=== PATIENT | female | born 1965 | race Caucasian/White ===

== ENCOUNTER 2019-11-26 08:12 | Outpatient (CLI) | payer BC, SELFPAY ==
--- NOTE | ~2019-11-26 | MM_ITS ---
EXAMINATION: MM screening [facility] BI w candice HISTORY: Screening mammogram TECHNIQUE: Craniocaudal and mediolateral oblique 3-D tomosynthesis images were obtained and synthetic 2-D images were generated. CAD analysis was submitted and interpreted. COMPARISON: 09/01/2018, 08/23/2017, 04/01/2016 bilateral digital screening mammogram examinations BREAST PARENCHYMAL COMPOSITION: The breasts are heterogeneously dense, which may obscure small masses . FINDINGS: There is a biopsy marker on the right, in the upper outer quadrant; history of prior benign right breast biopsy. Scattered bilateral benign appearing microcalcifications. There is no evidence of suspicious mass, ca lcification, or architectural distortion to suggest malignancy in either breast. There has been no lemus spicious interval change. IMPRESSION: 1. No mammographic evidence of malignancy. 2. Recommend routine screening mammography in one year. BI-RADS Category 2: Benign finding(s). Reviewed, dictated and finalized at location A.
== END 2019-11-26 08:13 | disposition home or self-care (01) ==
PROVIDERS: Visit Provider Student in an Organized Health Care Education/Training Program
DX: Z12.31 Encounter for screening mammogram for malignant neoplasm of breast (principal)
CPT/HCPCS: 77063; 77067

== ENCOUNTER 2021-01-06 07:47 | Outpatient (CLI) | payer BC, SELFPAY ==
--- NOTE | ~2021-01-06 | MM_ITS ---
EXAMINATION: MM screening [facility] BI w candice HISTORY: Screening mammogram TECHNIQUE: Craniocaudal and mediolateral oblique 3-D tomosynthesis images were obtained and synthetic 2-D images were generated. CAD analysis was submitted and interpreted. COMPARISON: 11/26/2019, 09/01/2018, 08/23/2017 bilateral digital screening mammogram examinations BREAST PARENCHYMAL COMPOSITION: The breasts are heterogeneously dense, which may obscure small masses . FINDINGS: There is a biopsy marker on the right; history of prior benign right breast biopsy. Scatter ed punctate benign-appearing microcalcifications are again noted in the breasts. Stable right axillar y tail circumscribed lymph node. There is no evidence of suspicious mass, calcification, or architectural manager ural distortion to suggest malignancy in either breast. There has been no suspicious interval change. IMPRESSION: 1. Benign findings. No mammographic evidence of malignancy. 2. Recommend routine screening mammography in one year. BI-RADS Category 2: Benign finding(s). Reviewed, dictated and finalized at location A.
== END 2021-01-06 07:48 | disposition home or self-care (01) ==
PROVIDERS: Visit Provider Student in an Organized Health Care Education/Training Program
DX: Z12.31 Encounter for screening mammogram for malignant neoplasm of breast (principal)
CPT/HCPCS: 77063; 77067

== ENCOUNTER 2022-07-12 07:47 | Outpatient (CLI) | payer BC, SELFPAY ==
--- NOTE | ~2022-07-12 | MM_ITS ---
EXAMINATION: MM screening [facility] BI w candice HISTORY: Screening mammogram TECHNIQUE: Craniocaudal and mediolateral oblique 3-D tomosynthesis images were obtained and synthetic 2-D images were generated. CAD analysis was submitted and interpreted. COMPARISON: 01/06/2021, 11/26/2019 BREAST PARENCHYMAL COMPOSITION: The breasts are heterogeneously dense, which may obscure small masses . FINDINGS: Scattered benign-appearing calcifications are present. No suspicious mass, calcification, o r architectural distortion are identified in either breast to suggest malignancy. There has been no s uspicious interval change. IMPRESSION: 1. No mammographic evidence of malignancy. 2. Recommend routine screening mammography in one year. BI-RADS Category 2: Benign finding(s). Reviewed, dictated and finalized at location A.
== END 2022-07-12 07:48 | disposition home or self-care (01) ==
LOC: ANHIMG 07:48
PROVIDERS: PCP Family Medicine Sports Medicine; Visit Provider Obstetrics & Gynecology
DX: Z12.31 Encounter for screening mammogram for malignant neoplasm of breast (principal)
CPT/HCPCS: 77063; 77067

== ENCOUNTER 2023-03-13 10:28 | Emergency (ER) | payer BC, SELFPAY ==
[2023-03-13 10:52] VITALS: BP 129/76; PULSE 74; RESP 20; TEMP 37; O2SAT 98
--- NOTE | 2023-03-13 11:03 | ED.URI ---
HPI - URI/Sore Throat General Chief Complaint: Upper Respiratory Infection Stated Complaint: SORE THROAT/[place] Time Seen by Provider: 03/13/23 11:03 Source: patient Mode of arrival: ambulatory Limitations: no limitations History of Present Illness HPI Narrative: 57-year-old female presents with complaint of sore throat for 2 days. Reports intermittent runny nose. Afebrile. No other complaints today. States throat feels ?swollen ?. All systems reviewed and negative except as noted above. Related Data Home Medications Medication Instructions Recorded Confirmed loratadine 10 mg tablet (Claritin) 10 mg PO DAILY 10/30/19 03/13/23 simvastatin 20 mg tablet 20 mg PO DAILY 10/30/19 03/13/23 omega-3 fatty acids 1,000 mg 1,000 mg PO BID 10/30/20 03/13/23 capsule (Fish Oil Concentrate) bupropion HCl 150 mg 24 hr tablet, 150 mg PO QAM 06/11/22 03/13/23 extended release Allergies Allergy/AdvReac Type Severity Reaction Status Date / Time [place] And Derivatives Allergy Unknown Unknown Verified 03/13/23 10:58 Penicillins Allergy Unknown Unknown Verified 03/13/23 10:58 Review of Systems Review of Systems: CONSTITUTIONAL: Denies fever, chills, or sweats. EYES: Denies visual changes, redness, or discharge. ENT: Denies rhinorrhea, congestion reports sore throat. Denies otalgia. CARDIOVASCULAR: Denies chest pain, palpitations, or edema. RESPIRATORY: Denies cough or dyspnea. GASTROINTESTINAL: Denies abdominal pain, nausea, vomiting, or diarrhea. GENITOURINARY: Denies dysuria or hematuria. SKIN: Denies rash or itching. MUSCULOSKELETAL: Denies back pain, joint pain, or myalgia. NEUROLOGIC: Denies headache, numbness, or weakness. PSYCHIATRIC: Denies anxiety or depression. All other systems reviewed are negative, except as documented in HPI. [facility] Past Medical History Medical History (Updated 03/13/23 @ 11:10 by Shabnam Garces NP) Anxiety and depression High cholesterol Surgical History Surgical History Albers teeth removed Family History Family History Father Diabetes mellitus Sibling Diabetes mellitus Mother Family history of malignant neoplasm Social History Social History (Updated 06/11/22 @ 10:38 by Francesca Garcia MA) Smoking status: Never smoker Second hand tobacco smoke exposure: No Alcohol intake: current Substance use: never Lack of Transportation: No Lack of Food: Never True Current Housing: I Have Housing Concerned About Future Housing: No Difficulty Paying Gas/Electric Bills: No Currently Unemployed: No Education: Trade/Vocational Certificate Living arrangements: with family Occupation/Education: occupation Gender identity (if verbalized by the patient): Female Sexual Orientation (if Verbalized by the Patient): Straight or Heterosexual Spiritual care concerns: No Comments At time of signature, agree with nursing past medical, surgical, social and family history. There is no relevant family history pertinent to the presenting complaint. Exam Narrative: GENERAL: This is a well-nourished, well-developed patient, in no apparent distress. HEAD: normocephalic, atraumatic. EYES: PERRL. Sclera clear/white. Vision is grossly intact. EARS: External ears normal, auditory canals clear and without drainage, TMs normal without perforation. Hearing grossly intact. NOSE: External nose normal with no obvious nasal discharge, nares without redness, no rhinorrhea. THROAT: Mucous membranes moist, mild erythema. No swelling or exudates. NECK: Neck supple, non-tender without lymphadenopathy, masses or thyromegaly. CARDIOVASCULAR: Regular rate and rhythm without murmurs, gallops, or rubs. RESPIRATORY: Clear to auscultation. Breath sounds equal bilaterally. No wheezes, rales, or rhonchi. SKIN: warm, Dry, intact with no suspicious lesions or rash,
== END 2023-03-13 11:18 | disposition home or self-care (01) ==
PROVIDERS: Emergency Provider Nurse Practitioner Family
DX: J02.8 Acute pharyngitis due to other specified organisms (principal); F41.8 Other specified anxiety disorders
CPT/HCPCS: 87081; 87880; 99213; G0463

== ENCOUNTER 2023-10-05 09:08 | Outpatient (CLI) | payer BC, SELFPAY ==
--- NOTE | ~2023-10-05 | MM_ITS ---
EXAMINATION: MM screening [facility] BI w candice HISTORY: Screening TECHNIQUE: Craniocaudal and mediolateral oblique 3-D tomosynthesis images were obtained and synthetic 2-D images were generated. CAD analysis was submitted and interpreted. COMPARISON: Comparison to multiple prior studies sequentially, with oldest reviewed study dated 04/01. BREAST PARENCHYMAL COMPOSITION: Dense: The breasts are heterogeneously dense, which may obscure small masses FINDINGS: There is no evidence of suspicious mass, calcification, or architectural distortion to sugg est malignancy in either breast. There has been no suspicious interval change. IMPRESSION: 1. No mammographic evidence of malignancy. 2. Recommend routine screening mammography in one year. BI-RADS Category 1: Negative Reviewed, dictated and finalized at location B.
== END 2023-10-05 09:09 | disposition home or self-care (01) ==
LOC: ANHIMG 09:10
PROVIDERS: Visit Provider Obstetrics & Gynecology
DX: Z12.31 Encounter for screening mammogram for malignant neoplasm of breast (principal)
CPT/HCPCS: 77063; 77067

== ENCOUNTER 2024-10-31 15:25 | Outpatient (CLI) | payer BC, SELFPAY ==
--- NOTE | ~2024-10-31 | MM_ITS ---
EXAMINATION: MM screening [facility] BI w candice HISTORY: Screening mammogram TECHNIQUE: Craniocaudal and mediolateral oblique 3-D tomosynthesis images were obtained and synthetic 2-D images were generated. CAD analysis was submitted and interpreted. COMPARISON: 10/05/2023, 07/12/2022, 01/06/2021 BREAST PARENCHYMAL COMPOSITION:Dense: The breasts are heterogeneously dense, which may obscure small masses. FINDINGS: No suspicious mass, calcification, or architectural distortion are identified in either breast to suggest malignancy. There has been no suspicious interval change. IMPRESSION: No mammographic evidence of malignancy. Recommend routine screening mammography in one year. BI-RADS Category 1: Negative Reviewed, dictated and finalized at location .
--- OUTSIDE RECORDS SUMMARY | 2024-10-31 15:59 | XMS_ITS | Clinical Summary ---
Author Organization [facility] Address [address] [place] [address] Phone Care Team Providers Care Clinical Appeals Reviewer Name Role Phone Provider, Unknown Primary Care Provider Unavaila ble Allergies Active Allergy Reactions Criticality Noted Date Comments [place] Hives 02/05/2020 Penicillins Hives 02/05/2020 Medications simvastatin (ZOCOR) 40 MG Tablet 20 mg. 11/23/2019 Active escitalopram (LEXAPRO) 10 MG Tablet 12/13/2019 Active Loratadine (CLARITIN PO) Take by mouth. 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 Gender Identity Not on file Sexual Orientation Not on file Last Filed Vital Signs Vital Sign Reading Time Taken Comments Blood Pressure 112/60 02/05/2020 10:06 AM BOTTLE HOUSE CLEANERS SUPERVISOR Pulse 61 02/05/2020 10:06 AM BOTTLE HOUSE CLEANERS SUPERVISOR Temperature 36.6 C (97.9 F) 02/05/2020 10:06 AM BOTTLE HOUSE CLEANERS SUPERVISOR Respiratory Rate 16 02/05/2020 10:06 AM BOTTLE HOUSE CLEANERS SUPERVISOR Oxygen Saturation 98% 02/05/2020 10:06 AM BOTTLE HOUSE CLEANERS SUPERVISOR Inhaled Oxygen Concentration - - Weight 56.7 kg (125 lb) 02/05/2020 10:06 AM BOTTLE HOUSE CLEANERS SUPERVISOR Height - - Body Mass Index - - Plan of Treatment Health Maintenance Due Date Last Done Comments Hepatitis C Virus (HCV) Screening 1966 Hepatitis B Immunization (1 of 3 - 19+ 3-dose series) 1985 Pap Smear 1987 Cervical Cancer Screening (CCS) 1996 HPV/Cotest 1996 Cologuard 2011 Colonoscopy 2011 Colorectal Cancer Screening 2011 Immunochemical Fecal Occult Blood 2011 Pneumococcal Immunization (5 0+ years) (1 of 1 - PCV) 2016 Zoster Immunization (1 of 2) 2016 SARS-COV-2 Immunization (3 - 2023- season) 2023 11/20/2020, 10/30/2020 Influenza Immunization (#1) 2024 12/21/2018 Respiratory Syncytial Virus (RSV) Immunization (Adult) (1 - 1-dose 75+ series) 2041 DTaP/Tdap/Td Immunization Discontinued 08/25/2018 TdaP Immunization Completed 08/25/2018 Human Papillomavirus (HPV) Immunization Aged Out No longer eligible based on patient's age to complete this topic Meningococcal Immunization (ACWY) Aged Out No longer eligible based on patient's age to complete this topic Rotavirus Immunization Aged Out No lo nger eligible based on patient's age to complete this topic Care Teams Clinical Appeals Reviewer Relationship Specialty Start Date End Date Provider, Unknown UNKNOWN PCP - General 02/05/20
== END 2024-10-31 15:26 | disposition home or self-care (01) ==
LOC: ANHFOHIMG 15:37
PROVIDERS: Visit Provider Nurse Practitioner Obstetrics & Gynecology
DX: Z12.31 Encounter for screening mammogram for malignant neoplasm of breast (principal)
CPT/HCPCS: 77063; 77067

== ENCOUNTER 2024-11-01 12:23 | Emergency (ER) | payer BC, SELFPAY ==
--- NOTE | ~2024-11-01 | XR_ITS ---
EXAMINATION: XR chest 2V 11/01/2024 13:17 INDICATION: Chest pain TECHNIQUE:Frontal and lateral images of the chest were obtained. COMPARISON: None FINDINGS: The lungs are clear. The cardiomediastinal silhouette is within normal limits. There are no pleural effusions. There is no pneumothorax suspected. IMPRESSION: 1: NO ACUTE CARDIOPULMONARY DISEASE. Reviewed, dictated and finalized at location A.
[2024-11-01 12:25] VITALS: BP 145/80; PULSE 66; RESP 16; TEMP 36.2; O2SAT 100
--- OUTSIDE RECORDS SUMMARY | 2024-11-01 12:25 | XMS_ITS | Clinical Summary ---
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 Gender Identity Not on file Sexual Orientation Not on file Last Filed Vital Signs Vital Sign Reading Time Taken Comments Blood Pressure 112/60 02/05/2020 10:06 AM DIETETICS PROFESSOR Pulse 61 02/05/2020 10:06 AM DIETETICS PROFESSOR Temperature 36.6 C (97.9 F) 02/05/2020 10:06 AM DIETETICS PROFESSOR Respiratory Rate 16 02/05/2020 10:06 AM DIETETICS PROFESSOR Oxygen Saturation 98% 02/05/2020 10:06 AM DIETETICS PROFESSOR Inhaled Oxygen Concentration - - Weight 56.7 kg (125 lb) 02/05/2020 10:06 AM DIETETICS PROFESSOR Height - - Body Mass Index - [...] age to complete this topic Care Teams Global Security Architect Relationship Specialty Start Date End Date Provider, Unknown UNKNOWN PCP - General 02/05/20
--- NOTE | 2024-11-01 12:26 | ECG_ITS ---
Test Date: 2024-11-01 12:30:45 Measurements Intervals [facility] Rate: 66 P: 67 MN: 164 QRS: -56 QRSD: 96 T: 7 QT: 405 QTc: 426 Interpretive Statements SINUS RHYTHM WITH SINUS ARRHYTHMIA INCOMPLETE RIGHT BUNDLE BRANCH BLOCK LEFT ANTERIOR FASCICULAR BLOCK CONSIDER ANTERIOR INFARCT, AGE INDETERMINATE ABNORMAL ECG No previous ECG available for comparison Electronically Signed On 11-01-2024 12:57:30 CDT by Tano Ferguson D.O.
[2024-11-01 12:49] LABS: Hematocrit 38.3 % (37.0-47.0); Hemoglobin 12.4 g/dL (12.0-15.0); Immature Granulocyte Percent A 0.4 % (0-0.5); Lymphocytes Absolute Auto 2.15 K/mm3 (0.9-3.2); Mean Corpuscular HGB Conc 32.4 g/dl (32-36); Mean Corpuscular Hemoglobin 29.9 pg (26-34); Mean Corpuscular Volume 92.3 fl (80-100); Nucleated Red Blood Cells Absolute Auto 0.000 K/mm3 (0.0-0.012); Nucleated Red Blood Cells Perc 0.0 % (0.0-0.2); Platelet Count Result 270 k/mm3 (150-375); Red Blood Count 4.15 M/mm3 (4.2-5.4); White Blood Count 8.2 K/mm3 (4.5-10.0)
[2024-11-01 12:57] LABS: Alanine Aminotransferase 86 U/L (6-35); Albumin Level 4.6 g/dL (3.5-5.1); Alkaline Phosphatase 104 U/L (38-126); Anion Gap 7 mmol/L (4-12); Aspartate Amino Transferase 66 U/L (14-36); Bilirubin,Total 0.6 mg/dL (0.2-1.3); Blood Urea Nitrogen 16 mg/dL (7-17); Calcium 9.8 mg/dL (8.4-10.2); Carbon Dioxide 30 mmol/L (22-30); Chloride 102 mmol/L (98-107); Estimated CRCL calculation 50 ml/min; Estimated Glomerular Filt Rate > 60; Glucose 91 mg/dL (65-110); Lipase 57 U/L (23-300); Potassium 3.8 mmol/L (3.4-5.0); Sodium 139 mmol/L (137-145); Total Protein 8.1 g/dL (6.3-8.2)
[2024-11-01 13:08] LABS: Troponin I < 0.012 ng/mL (0.000-0.034)
[2024-11-01 13:12] LABS: INR 1.1; Prothrombin Time 13.8 Seconds (11.1-14.7)
[2024-11-01 13:13] LABS: Partial Thromboplastin Time 27.6 Seconds (22.3-36.8)
--- NOTE | 2024-11-01 13:31 | ED.CHESTPAIN ---
HPI - Chest Pain General Chief Complaint: Chest Pain Stated Complaint: chest pain, SOB Time Seen by Provider: 11/01/24 12:29 History of Present Illness HPI narrative: This is a 59-year-old female with history of hyperlipidemia presents to the ED for chest pain. Patient states that yesterday morning about 3:00 a.m. she was woken up with left-sided chest pain that radiated to her left back. Pain is worse with deep inspirations. She does not recall any change in his exercise regimen or heavy lifting. No prior cardiac history. Denies any recent illnesses, fevers, chills. Denies shortness of breath. Related Data Home Medications ?Medication ?Instructions ?Recorded ?Confirmed ?Last Taken ?Type loratadine 10 mg tablet (Claritin) 10 mg PO DAILY 10/30/19 08/10/24 Unknown History simvastatin 20 mg tablet 20 mg PO DAILY 10/30/19 08/10/24 Unknown History bupropion HCl 150 mg 24 hr tablet, 150 mg PO QAM 06/11/22 08/10/24 Unknown History extended release Allergies Allergy/AdvReac Type Severity Reaction Status Date / Time [place] And Derivatives Allergy Unknown Unknown Verified 08/10/24 09:27 Penicillins Allergy Unknown Unknown Verified 08/10/24 09:27 Review of Systems Review of Systems: Gen.: Denies fevers or chills Eyes: Denies eye pain or visual change ENT: Denies congestion Respiratory: Denies shortness of breath or cough CV: As per HPI GI: Denies abdominal pain nausea, emesis or diarrhea denies burning, urgency, frequency or hematuria Musculoskeletal: Denies back pain or muscle pain Neuro: Denies numbness, tingling, weakness or focal weakness Skin: Denies rash Except as documented, all other systems reviewed and negative [facility] Past Medical History Medical History (Updated 11/01/24 @ 14:03 by Jose E Alvarez MD) Anxiety and depression High cholesterol Surgical History Surgical History Helm teeth removed Family History Family History Father Diabetes mellitus Sibling Diabetes mellitus Mother Family history of malignant neoplasm Social History Social History Smoking status: Never smoker Second hand tobacco smoke exposure: No Alcohol intake: current Substance use: never Lack of Transportation: No Lack of Food: Never True Current Housing: I Have Housing Concerned About Future Housing: No Difficulty Paying Gas/Electric Bills: No Currently Unemployed: No Education: Trade/Vocational Certificate Living arrangements: with family Occupation/Education: occupation Gender identity (if verbalized by the patient): Female Sexual Orientation (if Verbalized by the Patient): Straight or Heterosexual Spiritual care concerns: No Exam Narrative: APPEARANCE: No acute distress, nontoxic, resting in bed EYES: EOMI HEENT: Normocephalic, atraumatic, OMM RESPIRATORY: No respiratory distress Clear to auscultation bilaterally with no rhonchi wheezing or rales. CARDIOVASCULAR: Regular rate and rhythm without murmurs rubs or gallops. ABDOMINAL: Soft, nontender, nondistended, no rebound or guarding MUSCULOSKELETAl: Moves all extremities. No clubbing, cyanosis or edema. TTP to the paraspinal left thoracic musculature. NEURO: Awake and alert. Following commands, speech normal, no focal deficits SKIN:: Warm, dry. No rashes lesions or abrasions PSYCHIATRIC: Normal affect/mood, Course Vital Signs Vital signs: Vital Signs Temperature 97.2 F L 11/01/24 12:25 Pulse Rate 66 11/01/24 12:25 Respiratory Rate 16 11/01/24 12:25 Blood Pressure 145/80 H 11/01/24 12:25 Pulse Oximetry 100 11/01/24 12:25 Oxygen Delivery Room Air 11/01/24 12:25 Temperature 97.2 F L 11/01/24 12:25 Pulse Rate 65 11/01/24 13:57 Respiratory Rate 13 11/01/24 13:57 Blood Pressure 135/73 11/01/24 13:57 Pulse Oximetry 97 11/01/24 13:57 Oxygen Delivery Room Air 11/01/24 12:35 MDM - Chest Pain MDM Narrative Medical decision making narrative: 59-year-old female who presented to the ED for chest pain onset yesterday morning. initial vital signs were stable. Patient's EKGs and labs are without significant high risk changes. Cardiac risk factors reviewed. Patient is felt likely low risk for ACS and reasonable for further risk stratification testing as an outpatient. Pain was not sudden or maximal in onset without tearing or ripping quality. No other signs of symptoms suggest aortic dissection. No pneumonia seen on evaluation today. Patient is felt to be a reasonable candidate for continued evaluation as an outpatient. patient was given Toradol letter with significant pain. Suspect she does have pleurisy. She was advised PCP further evaluation. Patient was agreeable this plan. Given strict return precautions. Differential Diagnosis Differential diagnosis: Likely atypical chest pain, costochondritis and chest pain Lab Data Attestation: I reviewed the patient's lab results. 11/01/24 12:39 11/01/24 12:39 Labs: Lab Results 11/01/24 Range/Units 12:39 WBC 8.2 (4.5-10.0) K/mm3 RBC 4.15 L (4.2-5.4) M/mm3 Hgb 12.4 (12.0-15.0) g/dL Hct 38.3 (37.0-47.0) % MCV 92.3 (80-100) fl MCH 29.9 (26-34) pg MCHC 32.4 (32-36) g/dl RDW 12.8 (11.5-14.5) % Plt Count 270 (150-375) k/mm3 MPV 9.8 (7.4-10.4) fl Immature Gran % (Auto) 0.4 (0-0.5) % Neut % (Auto) 61.1 (45.5-73.1) % Lymph % (Auto) 26.2 (18.3-44.2) % [place] % (Auto) 10.1 H (2.6-8.5) % Eos % (Auto) 1.7 (0-4.4) % Baso % (Auto) 0.5 (0.2-1.2) % Lymph # (Auto) 2.15 (0.9-3.2) K/mm3 [place] # (Auto) 0.8 H (0.1-0.6) K/mm3 Eos # (Auto) 0.1 (0-0.3) K/mm3 Baso # (Auto) 0.0 (0.0-0.1) K/mm3 Abs Immat Gran (auto) 0.03 (0.00-0.031) K/mm3 Absolute Neuts (auto) 5.0 (1.3-6.7) K/mm3 Absolute Nucleated RBC 0.000 (0.0-0.012) K/mm3 Nucleated RBC % 0.0 (0.0-0.2) % PT 13.8 (11.1-14.7) Seconds INR 1.1 APTT 27.6 (22.3-36.8) Seconds Sodium 139 (137-145) mmol/L Potassium 3.8 (3.4-5.0) mmol/L Chloride 102 (98-107) mmol/L Carbon Dioxide 30 (22-30) mmol/L Anion Gap 7 (4-12) mmol/L BUN 16 (7-17) mg/dL Creatinine 0.77 (0.7-1.0) mg/dL Estim Creat Clear Calc 50 ml/min Estimated GFR > 60 (59 - ) Glucose 91 (65-110) mg/dL Calcium 9.8 (8.4-10.2) mg/dL Total Bilirubin 0.6 (0.2-1.3) mg/dL AST 66 H (14-36) U/L ALT 86 H (6-35) U/L Alkaline Phosphatase 104 (38-126) U/L Troponin I < 0.012 (0.000-0.034) ng/mL Total Protein 8.1 (6.3-8.2) g/dL Albumin 4.6 (3.5-5.1) g/dL Lipase 57 (23-300) U/L Imaging Data Radiologist's impression: Impressions Chest X-Ray 11/01/24 13:29 IMPRESSION: 1: NO ACUTE CARDIOPULMONARY DISEASE. ECG Data EKG #1: ECG completion date: 11/01/24 ECG completion time: 12:30 Prior ECG tracings: not available for review Interpretation: Sinus rhythm with sinus arrhythmia, left anterior fascicular block, incomplete right bundle-branch block, Q-waves in anterior leads, no acute ST or T-wave changes. Discharge Plan Discharge Clinical Impression: Pleurisy Patient Disposition: Home Condition: Stable Instructions: Antibiotic Form, Chest Wall Pain (ED) Additional Instructions: Your chest x-ray, EKG, and blood work were reassuring there is no cardiac injury at this time. Continue to follow-up with your PCP in the next week. You may take Tylenol and ibuprofen for the pain. You were given a prescription for Flexeril and lidoderm, take thes as prescribed. Return to the ED for any new or worsening symptoms. Patient Language: Persian Prescriptions: New cyclobenzaprine 10 mg tablet 10 mg PO HS PRN (Reason: muscle spasm) Qty: 30 0RF lidocaine [DermacinRx Lidocan] 5 % adhesive patch,medicated 1 patch topical DAILY Qty: 15 0RF Rx Instructions: leave on most painful area for up to 12 hrs No Action simvastatin 20 mg tablet 20 mg PO DAILY loratadine [Claritin] 10 mg tablet 10 mg PO DAILY bupropion HCl 150 mg tablet extended release 24 hr 150 mg PO QAM Follow-up/Referrals: PHYSICIAN NOT ON STAFF,NONSTAFF [Non-Staff]
[2024-11-01] MEDS: ASPIRIN 81 MG CHEWABLE TABLET 324 MG PO (13:40)
[2024-11-01] MEDS: KETOROLAC 30 MG/ML VIAL (*BKC) IV PUSH (13:41)
[2024-11-01] MEDS: LIDOCAINE 5% PATCH 1 PATCH TRANSDERM (13:42)
--- OUTSIDE RECORDS SUMMARY | 2024-11-01 13:43 | XMS_ITS | Clinical Summary ---
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 Gender Identity Not on file Sexual Orientation Not on file Last Filed Vital Signs Vital Sign Reading Time Taken Comments Blood Pressure 112/60 02/05/2020 10:06 AM IT TRAINEE Pulse 61 02/05/2020 10:06 AM IT TRAINEE Temperature 36.6 C (97.9 F) 02/05/2020 10:06 AM IT TRAINEE Respiratory Rate 16 02/05/2020 10:06 AM IT TRAINEE Oxygen Saturation 98% 02/05/2020 10:06 AM IT TRAINEE Inhaled Oxygen Concentration - - Weight 56.7 kg (125 lb) 02/05/2020 10:06 AM IT TRAINEE Height - - Body Mass Index - [...] age to complete this topic Care Teams Sales Recruiting Coordinator Relationship Specialty Start Date End Date Provider, Unknown UNKNOWN PCP - General 02/05/20
[2024-11-01 13:57] VITALS: BP 135/73; PULSE 65; RESP 13; O2SAT 97
== END 2024-11-01 14:21 | disposition home or self-care (01) ==
PROVIDERS: Emergency Medicine; Emergency Provider Student in an Organized Health Care Education/Training Program; PCP Family Medicine
DX: R09.1 Pleurisy (principal); E78.5 Hyperlipidemia, unspecified; F41.9 Anxiety disorder, unspecified; F32.A Depression, unspecified; Z79.899 Other long term (current) drug therapy; I45.2 Bifascicular block; R94.31 Abnormal electrocardiogram [ECG] [EKG]
CPT/HCPCS: 36415; 71046; 80053; 83690; 84484; 85025; 85610; 85730; 93005; 96374; 99284; A9270; J1885